=== PATIENT | male | born 1955 | race African-American/Black ===

== ENCOUNTER 2017-11-01 09:40 | Emergency (ER) | payer MEDICAID, OTHER, SELFPAY ==
[2017-11-01 10:36] LABS: #Basophils 0.1 thou/uL (0.0-0.2); #Lymphocytes 1.5 thou/uL (1.20-3.40); #Monocytes 0.5 thou/uL (0.11-0.59); #Neutrophils 2.6 thou/uL (1.40-6.50); %Basophils 1.5 % (0.0-1.0); %Lymphocytes 31.7 % (21.0-51.0); %Monocytes 11.1 % (0.0-10.0); %Neutrophils 54.6 % (42.0-75.0); Hemoglobin 15.1 g/dL (14.0-18.0); Mean Corpuscular Hemoglobin 32.2 pg (27.0-31.0); Mean Platelet Volume 6.3 fL (7.4-10.4); Platelet Count 223 thou/uL (130-400); RBC Distribution Width 11.7 % (11.5-14.5); Red Blood Cell (RBC) Count 4.68 mill/uL (4.70-6.10); White Blood Cell (WBC) Count 4.7 thou/uL (4.8-10.8)
[2017-11-01 10:43] LABS: INR-International Normal Ratio 1.4; Prothrombin Time 17.7 SEC (12.0-14.7)
[2017-11-01 10:56] LABS: ALT (SGPT) 22 U/L (8-55); AST (SGOT) 31 U/L (5-34); Albumin 3.8 g/dL (3.4-4.8); Alkaline Phosphatase 58 U/L (40-150); Anion Gap 17 mmol/L (10-20); BUN (Urea Nitrogen) 11 mg/dL (8.4-25.7); Bilirubin, Total 0.8 mg/dL (0.2-1.2); CK (CPK) 104 U/L (30-200); Calc. Creatinine Clearance 0 mL/min (70-130); Carbon Dioxide 20 mmol/L (23-31); Chloride 104 mmol/L (98-107); Estimated GFR-MDRD Greater than 90; Globulin 3.7 g/dL (2.4-3.5); Glucose 92 mg/dL (80-115); Potassium 3.8 mmol/L (3.5-5.1); Protein, Total 7.5 g/dL (5.8-8.1); Sodium 137 mmol/L (136-145)
[2017-11-01 11:01] LABS: CKMB 0.9 ng/mL (0-6.6); Troponin I Less than 0.010 ng/mL (< 0.028)
[2017-11-01] MEDS ORDERED: ISOVUE-370 76%-LOCM 1 ML ONE (11:01)
--- NOTE | 2017-11-01 12:00 | RAD ---
FRONTAL VIEW CHEST SERIES: INDICATIONS: Weakness. Passing out episodes. TECHNIQUE: Two views provided. FINDINGS: The lungs are clear. There is no effusion or pneumothorax. The cardiac silhouette is normal in size . Stable granulomatous calcification overlying the left hilum. IMPRESSION: No focal consolidation. POS: [facility]
--- NOTE | 2017-11-01 12:19 | CT ---
CT ANGIOGRAM CHEST: 11/01/2017 HISTORY: Near syncope. Shortness of breath. Assess for pulmonary embolism. COMPARISON: 12/23/2016 TECHNIQUE: Serial axial CT imaging is obtained at 2.5 mm intervals, from the thoracic inlet through the upper ab domen, with IV contrast, using a CT angiogram protocol. Coronal and oblique sagittal 3D reformatted imaging obtained. FINDINGS: No axillary, mediastinal, or hilar lymphadenopathy. The imaged upper abdomen appears grossly unremar kable. No pleural, pericardial, or mediastinal fluid is seen. A filling defect is seen within the pulmonary arterial trunk or either main pulmonary artery. The prior examination demonstrated extensive bilateral pulmonary emboli. On today's examination, there is attenuation of the pulmonary artery supplying the medial aspect of t he left upper lobe, suggesting a chronic area of pulmonary embolism. In addition, there is residual thrombus within a diminutive pulmonary artery on the left, supplying the posterior aspect of the left lower lobe with diminutive pulmonary arteries distal to this point. This is best seen on axial imag e 66. These findings on the left suggest chronic left upper and left lower lobe PE with no evidence for acute left-sided PE. There is a linear filling defect within the distal-most aspect of the right main pulmonary artery, on image 55, which was in an area of prior clot, on the 12/23/2016 exam, suggesting chronic PE/web. Th e right middle and right lower lobe pulmonary arteries appear grossly unremarkable. There is no evid ence for acute pulmonary embolism on the right. There is no pneumothorax seen on either side. The lung parenchyma demonstrates linear areas of increased density within the posterior-inferior left lower lobe, similar when compared to prior imaging, suggesting scar and/or volume loss. A calcified left hilar node is noted. There is no worrisome lytic or blastic bone lesion. No acute osseous abnormality is seen. IMPRESSION: There is evidence of chronic pulmonary embolus, bilaterally, as detailed above, left greater than rig ht. There is no CT angiographic evidence for an acute pulmonary embolism. Please see above discussi on. POS: [facility]
== END 2017-11-01 12:12 | disposition home or self-care (01) ==
LOC: ERS 09:40
DX: R55 Syncope and collapse (principal); I10 Essential (primary) hypertension; F32.9 Major depressive disorder, single episode, unspecified; Z79.01 Long term (current) use of anticoagulants
CPT/HCPCS: 36415; 71045; 71275; 80053; 82553; 84484; 85025; 85610; 85730; 93005

== ENCOUNTER 2020-10-09 22:09 | Observation (INO) | payer OTHER ==
[2020-10-09] MEDS ORDERED: Ondansetron ODT 4 MG TAB PO PRN (23:08)
[2020-10-09] MEDS ORDERED: Ondansetron PF 4 MG/2 ML Vial IVP PRN (23:08)
[2020-10-09] MEDS ORDERED: Acetaminophen 325 MG TAB PO PRN (23:08)
[2020-10-09] MEDS ORDERED: Cyclobenzaprine 10 MG TAB PO PRN (23:12)
[2020-10-09] MEDS ORDERED: Morphine 4 MG/ML VIAL ONE (23:16)
[2020-10-09] MEDS ORDERED: Ondansetron PF 4 MG/2 ML Vial ONE (23:16)
[2020-10-09] MEDS ORDERED: Cyclobenzaprine 10 MG TAB PO SCH (23:30)
[2020-10-09] MEDS ORDERED: Diazepam 5 MG TAB PO PRN (23:57)
[2020-10-09] MEDS ORDERED: Diazepam 5 MG TAB PO SCH (23:59)
[2020-10-10] MEDS ORDERED: Diazepam 5 MG TAB ONE (00:08)
[2020-10-10] MEDS ORDERED: Cyclobenzaprine 10 MG TAB ONE (00:09)
[2020-10-10 00:14] VITALS: BMI 23.3
[2020-10-10] MEDS ORDERED: Thiamine HCl 200 MG/2 ML VIAL IM SCH (00:15)
[2020-10-10 02:12] LABS: Troponin I Less than 0.010 ng/mL (< 0.028)
[2020-10-10 03:50] LABS: SARS-CoV-2 NAA Rapid Test Not Detected (NotDetected)
[2020-10-10] MEDS ORDERED: Diazepam 5 MG TAB PO PRN (04:00)
[2020-10-10 06:08] LABS: Anion Gap 12 mmol/L (10-20); BUN (Urea Nitrogen) 8 mg/dL (8.4-25.7); Calc. Creatinine Clearance 92 mL/min (70-130); Calcium 10.5 mg/dL (7.8-10.44); Carbon Dioxide 29 mmol/L (23-31); Chloride 101 mmol/L (98-107); Glucose 96 mg/dL (80-115); Potassium 4.2 mmol/L (3.5-5.1); Sodium 138 mmol/L (136-145)
[2020-10-10 07:07] LABS: Band 3 % (5-11); Eosinophils 2 % (0-10); Hemoglobin 11.9 g/dL (14.0-18.0); Lymphocytes 18 % (21-51); MDiff Complete? YES; Mean Corpuscular HGB CONC 34.2 g/dL (32.0-36.0); Mean Corpuscular Hemoglobin 32.3 pg (27.0-31.0); Mean Corpuscular Volume 94.5 fL (78.0-98.0); Monocytes 20 % (0-10); Neutrophil 57 % (42-75); Platelet Count 277 thou/uL (130-400); Red Blood Cell (RBC) Count 3.69 mill/uL (4.70-6.10); White Blood Cell (WBC) Count 5.9 thou/uL (4.8-10.8)
[2020-10-10] MEDS ORDERED: Multivitamin W/ Minerals 1 TAB PO SCH (09:00)
[2020-10-10] MEDS ORDERED: Thiamine 100 MG TAB PO SCH (09:00)
[2020-10-10] MEDS ORDERED: Folic Acid 1 MG TAB PO SCH (09:00)
[2020-10-10] MEDS ORDERED: Magnesium Oxide 400 MG TAB PO SCH (09:00)
[2020-10-10] MEDS ORDERED: Enoxaparin Sodium 80 MG/0.8 ML SYRINGE SC SCH (09:00)
[2020-10-10] MEDS ORDERED: Enoxaparin Sodium 80 MG/0.8 ML SYRINGE ONE (09:56)
[2020-10-10] MEDS ORDERED: Thiamine 100 MG TAB ONE (09:56)
[2020-10-10] MEDS ORDERED: Folic Acid 1 MG TAB ONE (09:56)
[2020-10-10] MEDS ORDERED: Simethicone Chewable 80 MG TAB PO SCH (10:30)
[2020-10-10] MEDS ORDERED: Iopamidol-370 76% 500 ML 1 ML ONE (11:43)
== END 2020-10-10 12:37 | disposition home or self-care (01) ==
LOC: ERS 22:09 → ERHOLD 22:47
PROVIDERS: ADMIT Emergency Medicine; ATTEND Emergency Medicine
DX: R07.9 Chest pain, unspecified (principal); M25.541 Pain in joints of right hand; F10.20 Alcohol dependence, uncomplicated; I10 Essential (primary) hypertension; Z86.711 Personal history of pulmonary embolism; Z20.822 Contact with and (suspected) exposure to COVID-19
CPT/HCPCS: 0240U; 36415; 71275; 80048; 82550; 84550; 85025; 93970; 96372; 96374; 96375; G0378; J1650; J2270; J2405; J3411; J3475; J3490; Q9967

== ENCOUNTER 2021-07-01 13:12 | Outpatient (CLI) | payer MEDICARE, OTHER | END 2021-07-01 13:13 | disposition home or self-care (01) | LOC: BICRAD 13:12 | PROVIDERS: ATTEND Nurse Practitioner Family | DX: M25.551 Pain in right hip (principal); M16.11 Unilateral primary osteoarthritis, right hip | CPT/HCPCS: 72170 ==

== ENCOUNTER 2022-04-01 13:03 | Outpatient (CLI) | payer MEDICARE, OTHER | END 2022-04-01 13:04 | disposition home or self-care (01) | LOC: SCSMRI 13:03 | PROVIDERS: ATTEND Nurse Practitioner Family | DX: M50.121 Cervical disc disorder at C4-C5 level with radiculopathy (principal) | CPT/HCPCS: 72141 ==

== ENCOUNTER 2022-07-12 10:13 | Outpatient (CLI) | payer MEDICARE, MEDICAID ==
[2022-07-12 11:25] LABS: #Basophils 0.1 10x3/uL (0.0-0.2); #Eosinphils 0.2 10x3/uL (0.0-0.5); #Monocytes 0.9 10x3/uL (0.0-1.1); %Basophils 1.3 % (0.0-2.0); %Eosinophils 3.8 % (0.0-6.0); %Lymphocytes 31.4 % (18.0-47.0); %Monocytes 14.9 % (0.0-10.0); %Neutrophils 48.4 % (40.0-75.0); Hemoglobin 15.4 g/dL (13.5-17.5); Mean Corpuscular HGB CONC 33.9 g/dL (32.0-36.0); Mean Corpuscular Volume 91.5 fl (81.2-95.1); Mean Platelet Volume 9.7 fl (7.4-10.4); Platelet Count 278 10x3/uL (150-450); RBC Distribution Width 12.7 % (11.5-14.5); Red Blood Cell (RBC) Count 4.96 10x6/uL (4.32-5.72); White Blood Cell (WBC) Count 6.1 10x3/uL (3.5-10.5)
[2022-07-12 11:37] LABS: Prothrombin Time 11.2 sec (9.5-12.1)
[2022-07-12 11:43] LABS: Anion Gap 17 mmol/L (10-20); BUN (Urea Nitrogen) 15 mg/dL (8.4-25.7); Calc. Creatinine Clearance 0 mL/min (70-130); Calcium 9.8 mg/dL (7.8-10.44); Carbon Dioxide 24 mmol/L (23-31); Chloride 104 mmol/L (98-107); Estimated GFR 77; Glucose 100 mg/dL (80-115); Potassium 4.3 mmol/L (3.5-5.1); Sodium 141 mmol/L (136-145)
== END 2022-07-12 10:14 | disposition home or self-care (01) ==
LOC: LABBT 10:13
PROVIDERS: ATTEND Orthopaedic Surgery
DX: Z01.818 Encounter for other preprocedural examination (principal); M16.11 Unilateral primary osteoarthritis, right hip
CPT/HCPCS: 80048; 85025; 85610; 87081; 93005; 93010

== ENCOUNTER 2022-07-13 05:25 | Inpatient (IN) | payer MEDICARE, MEDICAID ==
[2022-07-12 11:49] VITALS: BMI 23.1
[2022-07-13] MEDS ORDERED: Midazolam HCl 2 mg/2 ml Vial ONE (05:51)
[2022-07-13] MEDS ORDERED: fentaNYL PF 100 MCG/2 ML SYRINGE ONE (05:52)
[2022-07-13] MEDS ORDERED: PHENYLEPHRINE-NS 100 MCG/ML 10 ML SYRINGE ONE ×2 (05:53→06:45)
[2022-07-13] MEDS ORDERED: Propofol 500 MG/50 ML VIAL ONE (06:02)
[2022-07-13] MEDS ORDERED: Sodium Chloride 0.9% 100 ML ONE ×2 (06:18→06:55)
[2022-07-13] MEDS ORDERED: Vancomycin 1 GM/200 ML (FROZEN) BAG ONE (06:18)
[2022-07-13] MEDS ORDERED: Tranexamic Acid 1,000 MG/10 ML VIAL ONE (06:18)
[2022-07-13] MEDS ORDERED: Bupivacaine PF 0.5% 30 ML VIAL ONE (06:23)
[2022-07-13] MEDS ORDERED: Ropivacaine 0.5% HCl/PF (150 MG/30 ML VIAL) ONE (06:41)
[2022-07-13] MEDS ORDERED: PROPOFOL 200 MG/20 ML VIAL ONE (06:45)
[2022-07-13] MEDS ORDERED: Promethazine HCl 25 MG/ML VIAL IM PRN (06:50)
[2022-07-13] MEDS ORDERED: Ondansetron PF 4 MG/2 ML Vial IVP PRN (06:50)
[2022-07-13] MEDS ORDERED: diphenhydrAMINE 25 MG CAP PO PRN (06:50)
[2022-07-13] MEDS ORDERED: Acetaminophen 325 MG TAB PO PRN (06:50)
[2022-07-13] MEDS ORDERED: Zolpidem Tartrate 5 MG TAB PO PRN (06:50)
[2022-07-13] MEDS ORDERED: Fentanyl 100 MCG/2 ML VIAL SLOW IVP PRN (06:50)
[2022-07-13] MEDS ORDERED: HYDROcodone/Acetaminophen 10/325 mg Tablet PO PRN (06:50)
[2022-07-13] MEDS ORDERED: CEFAZOLIN 2 GM VIAL ONE (06:55)
[2022-07-13] MEDS ORDERED: tiZANidine HCl 4 MG TAB PO PRN (07:10)
[2022-07-13 07:35] LABS: SARS-CoV-2 NAA Rapid Test Not Detected (NotDetected)
[2022-07-13] MEDS ORDERED: Ondansetron HCl/PF 4 MG/2 ML Vial IVP PRN (08:29)
[2022-07-13] MEDS ORDERED: Fentanyl 250 MCG/5 ML VIAL ONE (09:08)
[2022-07-13] MEDS ORDERED: Ketorolac Tromethamine 30 MG/ML VIAL ONE (09:27)
[2022-07-13] MEDS ORDERED: hydrALAZINE 20 MG/ML VIAL ONE (10:55)
[2022-07-13] MEDS: Amlodipine 5 MG TAB PO SCH (12:37)
[2022-07-13] MEDS: Sodium Chloride 0.9% 1,000 ML IV SCH ×2 (12:37→16:04)
[2022-07-13] MEDS: Aspirin 81 mg Enteric Coated Tablet PO SCH ×2 (12:38→20:54)
[2022-07-13] MEDS: Losartan 25 MG TAB PO SCH (12:38)
[2022-07-13] MEDS: Ketorolac Tromethamine 30 MG/ML VIAL IVP SCH ×2 (13:36→20:51)
[2022-07-13] MEDS: HYDROcodone/Acetaminophen 10/325 mg Tablet PO PRN ×2 (13:36→20:49)
[2022-07-13] MEDS: CEFAZOLIN 2 GM in Sodium Chloride 0.9% 100 ML IVPB SCH ×2 (14:20→23:47)
[2022-07-14] MEDS: HYDROcodone/Acetaminophen 10/325 mg Tablet PO PRN ×2 (04:34→10:34)
[2022-07-14] MEDS: Sodium Chloride 0.9% 1,000 ML IV SCH ×3 (05:13→20:32)
[2022-07-14] MEDS: Ketorolac Tromethamine 30 MG/ML VIAL IVP SCH ×3 (06:11→20:23)
[2022-07-14 06:43] LABS: Hemoglobin 13.8 g/dL (14.0-18.0); Mean Corpuscular HGB CONC 33.5 g/dL (32.0-36.0); Mean Corpuscular Volume 95.4 fl (78.0-98.0); Mean Platelet Volume 7.8 fL (7.4-10.4); Platelet Count 213 10x3/uL (130-400); RBC Distribution Width 11.9 % (11.5-14.5); Red Blood Cell (RBC) Count 4.31 mill/uL (4.70-6.10); White Blood Cell (WBC) Count 7.5 10x3/uL (4.8-10.8)
[2022-07-14] MEDS ORDERED: FLU VACC QS2022-23(65YR UP)/PF 240 MCG/0.7 ML SYRINGE IM ONE (09:00)
[2022-07-14] MEDS: Ferrous Gluconate 324 MG TAB PO SCH ×2 (09:06→17:36)
[2022-07-14] MEDS: Aspirin 81 mg Enteric Coated Tablet PO SCH ×2 (09:06→20:23)
[2022-07-14] MEDS: Amlodipine 5 MG TAB PO SCH (09:07)
[2022-07-14] MEDS: Losartan 25 MG TAB PO SCH (09:07)
[2022-07-14] MEDS: Senokot S 8.6-50 MG TAB PO SCH ×2 (09:08→20:24)
[2022-07-14] MEDS: Multivitamin W/ Minerals 1 TAB PO SCH (09:08)
[2022-07-14] MEDS ORDERED: tiZANidine HCl 4 MG TAB PO PRN (14:45)
[2022-07-15] MEDS: HYDROcodone/Acetaminophen 10/325 mg Tablet PO PRN (04:12)
[2022-07-15] MEDS: Ketorolac Tromethamine 30 MG/ML VIAL IVP SCH ×2 (05:24→14:11)
[2022-07-15] MEDS: Amlodipine 5 MG TAB PO SCH (08:07)
[2022-07-15] MEDS: Aspirin 81 mg Enteric Coated Tablet PO SCH (08:07)
[2022-07-15] MEDS: Ferrous Gluconate 324 MG TAB PO SCH ×2 (08:07→16:21)
[2022-07-15] MEDS: Senokot S 8.6-50 MG TAB PO SCH (08:08)
[2022-07-15] MEDS: Sodium Chloride 0.9% 1,000 ML IV SCH ×2 (08:08→18:25)
[2022-07-15] MEDS: Losartan 25 MG TAB PO SCH (08:08)
[2022-07-15] MEDS: Multivitamin W/ Minerals 1 TAB PO SCH (08:08)
[2022-07-15 17:03] VITALS: BP 138/81; TEMP 97.5
== END 2022-07-15 18:58 | disposition home or self-care (01) | DRG 470 ==
LOC: SDC 05:25 → SURG A 11:55
PROVIDERS: ADMIT Orthopaedic Surgery; ATTEND Orthopaedic Surgery
PROC: 0SR90J9 Replacement of Right Hip Joint with Synthetic Substitute, Cemented, Open Approach (ICD-10-PCS; principal; 2022-07-13)
DX: M16.11 Unilateral primary osteoarthritis, right hip (principal); Z20.822 Contact with and (suspected) exposure to COVID-19
CPT/HCPCS: 36415; 80048; 85025; 85027; 85610; 87081; 93005; C1776; J0360; J1885; J2250; J2704; J2795; J3010; J3370-JW; J3490; S0020; U0002